=== PATIENT | male | born 1970 | race Caucasian/White ===

== ENCOUNTER 2021-12-26 14:22 | Emergency (ER) | payer OTHER, BC ==
[2021-12-26] MEDS ORDERED: IBU600 MG PO (16:37)
== END 2021-12-26 16:46 | disposition home or self-care (01) ==
LOC: ER1 14:22
DX: M54.9 Dorsalgia, unspecified (principal); I10 Essential (primary) hypertension; E78.5 Hyperlipidemia, unspecified; F17.210 Nicotine dependence, cigarettes, uncomplicated; V43.52XA Car driver injured in collision with other type car in traffic accident, initial encounter; Y92.410 Unspecified street and highway as the place of occurrence of the external cause
CPT/HCPCS: 72125; 72128; 72131; 99283; J1100; J1885

== ENCOUNTER → 2021-12-30 | Outpatient (CLI) | payer BC ==
[~2021-12-30] MED LIST: IBU600 MG PO
== END ==
LOC: MRI 14:26
DX: M50.323 Other cervical disc degeneration at C6-C7 level (principal); M51.36 Other intervertebral disc degeneration, lumbar region; M47.812 Spondylosis without myelopathy or radiculopathy, cervical region
CPT/HCPCS: 72141; 72148